=== PATIENT | female | born 1955 | race Caucasian/White ===

== ENCOUNTER 2020-01-10 15:00 | Outpatient (CLI) | payer MEDICARE, OTHER ==
--- NOTE | 2020-01-10 15:55 | ULT ---
US Thyroid STANDARD History: Thyroid nodule seen on prior cervical spine CT Comparison: Cervical spine CT November 2019 Findings: Real-time grayscale and color evaluation of the thyroid was performed. Right lobe measures 3.6 x 0.8 x 1.4 cm and the left lobe measures 4.9 x 2.7 x 2.5 cm. Isthmus measure s 4 mm in AP dimension. Involving the majority of the left lobe of the thyroid is a predominantly solid nodule which is wider than tall measuring up to 4 cm in size with well-defined margins and absent echogenic foci. Nodule is isoechoic to background thyroid echotexture. Impression: Large left thyroid nodule replacing majority of the parenchyma is TI-RADS category 3: Mil dly suspicious. Given its large size, fine-needle aspiration is recommended.
== END 2020-01-10 15:01 | disposition home or self-care (01) ==
LOC: BICULT 15:00
PROVIDERS: ATTEND Otolaryngology Plastic Surgery within the Head & Neck
DX: E07.9 Disorder of thyroid, unspecified (principal); E04.1 Nontoxic single thyroid nodule
CPT/HCPCS: 76536

== ENCOUNTER 2023-03-16 12:54 | Outpatient (CLI) | payer MEDICARE | END 2023-03-16 12:55 | disposition home or self-care (01) | LOC: BICMAMMO 12:54 | PROVIDERS: ATTEND Nurse Practitioner Family | DX: R92.8 Other abnormal and inconclusive findings on diagnostic imaging of breast (principal); N60.41 Mammary duct ectasia of right breast; R92.2 Inconclusive mammogram | CPT/HCPCS: 76642; 77065; G0279 ==

== ENCOUNTER 2023-03-22 09:24 | Outpatient (CLI) | payer MEDICARE | END 2023-03-22 09:25 | disposition home or self-care (01) | LOC: BICMRI 09:24 | PROVIDERS: ATTEND Nurse Practitioner Family | DX: N60.41 Mammary duct ectasia of right breast (principal) | CPT/HCPCS: 82565; C8908 ==